=== PATIENT | male | born 1955 | race Caucasian/White ===

== ENCOUNTER 2022-10-30 13:46 | Emergency (ER) | payer OTHER, SELFPAY ==
[2022-10-30 13:51] VITALS: BP 116/78; PULSE 96; RESP 16; TEMP 36.8; O2SAT 96; BMI 28.5
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
--- NOTE | 2022-10-30 14:10 | ECG_ITS ---
[facility] Test Date: 2022-10-30 Pat Name: Anderson Briones Department: Room: Gender: Male Flow Specialist: : 1955 Requested By: Danie Packer Order Number: [id number] Giuseppe MD: Shai Ivey M.D. Measurements Intervals [place] Rate: 84 P: 0 IA: 0 QRS: 85 QRSD: 84 T: 75 QT: 357 QTc: 423 Interpretive Statements ATRIAL FIBRILLATION No previous ECG available for comparison Electronically Signed On 10-30-2022 17:19:17 CDT by Shai Ivey M.D. [id number]
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
[2022-10-30] MEDS: iohexol 350 mg/mL 500 mL Btl (per mL) IV (14:41)
[2022-10-30 14:55] VITALS: BP 122/69; PULSE 81; RESP 16; O2SAT 100
[2022-10-30 15:55] VITALS: BP 131/83; PULSE 80; RESP 16; O2SAT 100
[2022-10-30] MEDS: HYDROcodone-acetaminophen 7.5-325 mg Tablet 1 TAB PO (15:58)
[2022-10-30 16:27] VITALS: BP 131/83; PULSE 79; RESP 16; O2SAT 93
== END 2022-10-30 16:28 | disposition home or self-care (01) ==
PROVIDERS: Emergency Provider Family Medicine
DX: S29.012A Strain of muscle and tendon of back wall of thorax, initial encounter (principal); S80.211A Abrasion, right knee, initial encounter; V29.99XA Rider (driver) (passenger) of other motorcycle injured in unspecified traffic accident, initial encounter
CPT/HCPCS: 70450; 71260; 72125; 73562; 74177; 93005; 99285; Q9967